=== PATIENT | female | born 1995 | race Caucasian/White ===

== ENCOUNTER 2017-11-23 11:35 | Inpatient (IN) ==
[2017-11-23] MEDS ORDERED: NORMAL SALINE 10 ML SYRINGE FLUSH IVP PRN ×2 (11:54→15:41)
--- NOTE | 2017-11-23 13:31 | DI ---
EXAM: US Uterus, Limited CLINICAL HISTORY: decreased movement TECHNIQUE: Real-time ultrasound of the maternal uterus (limited) with image documentation. COMPARISON: No relevant prior studies available. FINDINGS: Fetus: Single intrauterine gestation. Position: Fetus is in vertex presentation. Heart rate: Heart rate of 142 bpm. Placenta: Placenta is anterior. Grade 1. No abruption. Amniotic fluid: Amniotic fluid index of 5.3 cm. Largest pocket measures 2.8 cm (transverse) x 1.85 cm (depth). Largest vertical pocket fluid depth measures 2.2 cm in the right upper quadrant. Other findings: IMPRESSION: IKER of 5.3 cm with deepest vertical pocket fluid depth of greater than 2 cm remains within normal limits. Otherwise single IUP without acute findings on this limited exam.
[2017-11-23] MEDS ORDERED: Lactated Ringers 1,000 ML PRIMARY IV ONE ×2 (14:01→14:11)
[2017-11-23] MEDS ORDERED: CALCIUM CARBONATE 500 MG (TUMS) CHEWABLE TABLET PO PRN (15:41)
[2017-11-23] MEDS ORDERED: Ondansetron ODT Tab 4 MG TAB PO PRN (15:41)
[2017-11-23] MEDS ORDERED: ONDANSETRON 4 MG/2 ML VIAL IVP PRN (15:41)
[2017-11-23] MEDS: BETAMET ACET/BETAMET NA PH 6 MG/1 ML - 5 ML IM SCH (16:36)
[2017-11-23] MEDS: Lactated Ringers 1,000 ML PRIMARY IV SCH (16:37)
--- NOTE | 2017-11-23 20:09 | OB.PROGRES ---
Intake - - Reason for Visit/Chief Complaint: NST, Leakage of Fluid Admitted From: Physician Office - Estimated Due Date: 12/16/17 Gestational Age in Weeks and Days: 37 Weeks and 0 Days : 1 Living Children: 0 - Labs Blood Type and Rh: B+ Group B Strep: Unknown Hepatitis B Surface Antigen: Absent HIV: Negative Rubella Status: Immune Maternal - Vital Signs Last Taken Vital Signs: Vital Signs - Last Taken Temperature 97.7 F 11/23/17 16:49 Pulse Rate 68 11/23/17 18:25 Respiratory Rate 16 11/23/17 16:50 Blood Pressure 126/79 11/23/17 16:50 Pulse Ox 99 11/23/17 16:50 - Vaginal Discharge Vaginal Bleeding Amount: None Vaginal Discharge Amount: Small Vaginal Discharge Description: Thin Vaginal Discharge Odor: Odorless Vaginal Itching: No Monitoring - Uterine Activity Uterine Contraction Monitor Mode: External Contraction Frequency(minutes): none noted Results - Labs CBC and BMP: 11/25/17 08:31 Assessment and Plan - Patient Problems (1) Oligohydramnios Current Visit: Yes Status: Acute Code(s): O41.00X0 - Oligohydramnios, unspecified trimester, not applicable or unspecified Support Text: 22 yo at 36 5/7 weeks gestation (by 9 week u/s) who presented to clinic today for routine OB visit. She complained of decreased FM x1.5 weeks as well as increased vaginal dischare/possible LOF. history - established care in [place]. GC/CT positive at diagnosis. She did have a negative SHERLYN later in . uncomplicated until now. labs 07/09/17 - BT: B+, Ab-; HBsAg neg; RI; RPR NR; Varicella Immune; HIV neg; H/H/Plt 14.4/44/294; urine cx neg; TSH 0.618. Declined quad screen. 20 week anatomy scan normal, anterior placenta. We did a growth scan - 13%ile, anterior placenta, grade 0. PMH - Asthma - rare albuterol use PSH - none FH - mo - htn, severe preeclampsia; GM - alzheimer; Bro - astrocytoma SH - never smoker, denies etoh and illicit drug use O: In clinic u/s notable for subjectively low fluid, vertex. She was sent to L& D for evaluation. Reactive NST. No contractions. Negative Amnisure. U/s revealed IKER 5.3 with single deepest verticle pocket 2.2 cm. A/P: Borderline oligohydramnios - Single deepest pocket 2.2 cm. Given gestational age and likely delivery shortly for oligo, I offered corticosteroid therapy for reduction of respiratory morbidity and mortality. She was given her first injection at 1700. Will admit overnight for IVF. Plan to recheck growth u/s, IKER in the morning. GBS was collected in clinic and is pending. Close observation through the night.
[2017-11-24] MEDS: Lactated Ringers 1,000 ML PRIMARY IV SCH ×3 (00:06→20:46)
--- NOTE | 2017-11-24 10:12 | DI ---
LIMITED OBSTETRICAL ULTRASOUND, 11/24/2017 10:00 AM Clinical History: Oligohydramnios. Decreased movement. Previous Exam: 11/23/2017. EDC based on early OB US: 12/16/2017. There is a single live IUP currently in vertex presentation. Amnionic fluid content is decreased for this stage of . Amniotic fluid index is 4.6 cm. activity is observed as follows: cardi ac and extremity. The placenta is anterior corpus and Grade 1. heart rate varies between 120-13 5 beats/minute over a time frame of 3 minutes. Cord Doppler ultrasound is performed and there is khan tolic flow. Systolic/diastolic ratios are 2.4, 3.2, and 3.2. BPD, HC, AC, and FL measurements are 87 mm, 306 mm, 300 mm, and 62 mm, respectively. These measurements correspond to EGA values of 35 weeks 1 day, 34 weeks 1 day, 34 weeks 0 days, and 32 weeks 1 day, respectively. Composite EGA is 33 weeks 6 days. The US EDC is 01/06/2018. EDC based on early OB US is 12/16/2017. HC and FL measurements are les s than the 2nd percentile and the AC measurement is in the 3rd percentile. LMP percentile is 2%. Michell mated weight is 2226 g, plus or minus 325 g. Readin. Single live fetus with vertex presentation. There is oligohydramnios. Amnionic fluid index is 4.6 cm. Placenta is anterior corpus and grade 1. 2. The composite EGA is 33 weeks 6 days with an ultrasound EDC of 01/06/2018. The EDC based on the [facility] OB ultrasound is 12/16/2017. 3. LMP percentile is 2%. Estimated weight is 2226 g, plus or minus 325 g.
[2017-11-24] MEDS: BETAMET ACET/BETAMET NA PH 6 MG/1 ML - 5 ML IM SCH (16:18)
[2017-11-24] MEDS: Prenatal Multivitamin Tab 1 TAB TAB PO SCH (20:45)
--- NOTE | 2017-11-24 20:48 | OB.PROGRES ---
Interval History: 22 yo female admitted last night for fluid resuscitation. I first rounded on her this morning. She was feeling well, no contractions. Noted only increased urination with IVF. She was anxious for the u/s results. This afternoon she noted increased vaginal discharge. Reports irregular contractions. Objective - Cervical Exam Cervical Exam: closed/thick/high, posterior, firm [place]: no contractions Heart Rate: baseline 150, mod darrion, +accels, -decels Heart Rate Interpretation Category: Category I - Labs Additional Lab Results: Amnisure negative 11/23 and 11/24 - Vital Signs Last Taken Vital Signs: Vital Signs - Last Taken Temperature 97.7 F 11/23/17 16:49 Pulse Rate 68 11/23/17 18:25 Respiratory Rate 16 11/23/17 16:50 Blood Pressure 126/79 11/23/17 16:50 Pulse Ox 99 11/23/17 16:50 Assessment and Plan - Patient Problems (1) Oligohydramnios Current Visit: Yes Status: Acute Code(s): O41.00X0 - Oligohydramnios, unspecified trimester, not applicable or unspecified (2) IUGR (intrauterine growth restriction) Current Visit: Yes Status: Acute Support Text: 22 yo at 36 6/7 weeks gestation admitted for IVF resuscitation in setting of oligohydramnios. Repeat u/s today with decrease in IKER from 5.3 cm with single deepest pocket 2.2cm down to 4.6cm with a single deepest pocket of 1.9cm. EFW 2%ile. Cervix - cl/thick/high, posterior, firm. Patient received her second dose of celestone at around 1600. At this point patient has a Category I strip, although earlier in the day she did have some variable decelerations. Long discussion with patient regarding moving forward with delivery. We discussed the fact that the patient has an unfavorable cervix, but given IUGR and oligo we will start with low dose pitocin. Since there were variables today , we discussed doing a contraction stress test prior to starting her induction. The patient asked about electing to do a primary section. We discussed risks and benefits of both vaginal vs delivery. We did discuss specifically that we do not do VBACs at our hospital and she would be require repeat cesareans. We also discussed the fact that her may need transferred to [place] for a higher level of care, and that she would likely have a longer hospital stay if she had a . At this point since she has a category I tracing, amnisure was again negative, will observe overnight continuously. She will be 37 weeks tomorrow, will have a longer steroid window, and we will proceed with delivery at that time. Patient is still considering primary elective vs proceeding with IOL.
[2017-11-24] MEDS ORDERED: diphenhydrAMINE 25 MG CAPSULE PO PRN (20:49)
[2017-11-25 08:33] LABS: Hematocrit [HCT] 36.4 % (37.0-47.0); Hemoglobin [HGB] 12.4 g/dL (12.0-16.0); MEAN CORPUSCULAR HEMOGLOBIN 30.2 PG (27-31); MEAN CORPUSCULAR HGB CONC 34.1 g/dL (33-37); MEAN CORPUSCULAR VOLUME 88.6 FL (81-99); MEAN PLATELET VOLUME 10.7 FL (7.4-12.2); RED BLOOD COUNT 4.11 10^6/uL (4.20-5.40)
--- NOTE | 2017-11-25 09:32 | OB.PROGRES ---
Interval History: Patient did get some rest overnight. She has talked things through with her mom and has decided to proceed with an elective primary LTCS. Objective - Cervical Exam [place]: some irritability Heart Rate: baseline 140, mod variability, no accels, no decels currently. Overnight baby had more accels. Did seem to be sensitive to position changes, especially to R side. - Labs CBC and BMP: 11/25/17 08:31 - Vital Signs Last Taken Vital Signs: Vital Signs - Last Taken Temperature 98.1 F 11/24/17 21:53 Pulse Rate 91 11/24/17 21:53 Respiratory Rate 20 11/24/17 21:53 Blood Pressure 125/79 11/24/17 21:53 Pulse Ox 99 11/24/17 21:53 Assessment and Plan - Patient Problems (1) Oligohydramnios Current Visit: Yes Status: Acute Code(s): O41.00X0 - Oligohydramnios, unspecified trimester, not applicable or unspecified (2) IUGR (intrauterine growth restriction) Current Visit: Yes Status: Acute Support Text: 22 yo at 37 0/7 weeks gestation (by 9 week u/s) with IUGR (2%ile) and oligohydramnios (4.6 cm) without evidence of ROM. Will proceed with delivery today. Patient has elected to proceed with elective primary LTCS. Patient is stable currently, the OR has requested we wait until 1230 as long as she is ok. Will continue to observe closely. - course notable for GC/CT positive at diagnosis of , negative test of cure. Asthma, but has not required albuterol. -GBS positive, no ROM but will ppx if SROM -Continue close observation, proceed to earlier if any concerns.
[2017-11-25] MEDS: Lactated Ringers 1,000 ML PRIMARY IV SCH ×2 (09:42→17:48)
[2017-11-25] MEDS ORDERED: LIDOCAINE W/ SODIUM BICARB 0.5 ML SYR SUBD PRN (11:05)
[2017-11-25] MEDS ORDERED: Lactated Ringers 1,000 ML PRIMARY IV ONE ×3 (11:05→14:10)
[2017-11-25] MEDS ORDERED: Oxytocin 20 Units + LR 20 UNIT/1,000 ML BAG IV SCH ×2 (11:05→15:04)
[2017-11-25] MEDS ORDERED: LIDOCAINE HCL 2 % 10 ML JELLY URO-JECT TOPICAL PRN (11:05)
[2017-11-25] MEDS ORDERED: Lactated Ringers 1,000 ML PRIMARY IV SCH ×2 (11:05→13:30)
[2017-11-25] MEDS ORDERED: NORMAL SALINE 10 ML SYRINGE FLUSH IVP PRN ×2 (11:05→13:20)
[2017-11-25] MEDS ORDERED: Famotidine Inj 20 MG in Normal Saline Flush 10 ML IVP ONE (11:05)
[2017-11-25] MEDS ORDERED: Metoclopramide Inj 10 MG/2 ML VIAL IV ONE (11:05)
[2017-11-25] MEDS ORDERED: CITRIC ACID/SODIUM CITRATE 30 ML CUP PO ONE (11:05)
[2017-11-25] MEDS ORDERED: CefOXitin Inj 2 GM in Sodium Chloride 0.9% 100 ML IV ONE (11:05)
[2017-11-25] MEDS ORDERED: ePHEDrine Inj 50 MG/ML AMP ONE (12:27)
[2017-11-25] MEDS ORDERED: fentaNYL Inj 100 MCG/2 ML VIAL ONE (12:27)
[2017-11-25] MEDS ORDERED: PHENYLEPHRINE 10,000 MCG/1 ML VIAL ONE (12:29)
[2017-11-25] MEDS ORDERED: ONDANSETRON 4 MG/2 ML VIAL ONE (13:03)
[2017-11-25] MEDS ORDERED: ATROPINE SULFATE 0.4 MG/1 ML VIAL IVP PRN (13:20)
[2017-11-25] MEDS ORDERED: ONDANSETRON 4 MG/2 ML VIAL IVP PRN ×2 (13:20→15:04)
[2017-11-25] MEDS ORDERED: Ondansetron ODT Tab 8 MG TAB PO PRN (13:20)
[2017-11-25] MEDS ORDERED: fentaNYL Inj 100 MCG/2 ML VIAL IVP PRN (13:20)
[2017-11-25] MEDS ORDERED: HYDROmorphone 2 MG/1 ML IVP PRN (13:20)
--- NOTE | 2017-11-25 13:24 | CRNA.PROGR ---
Anesthesia Time - - Start date: 11/25/17 End date: 11/25/17 - Procedure/Recovery Time Anesthesia : Time In: 12:38 Anesthesia : Time Out: 14:27 Anesthesia : Total Time: 109 - Total Anesthesia Time Total Anesthesia Time (minutes): 109 - Other Weight: 71.214 kg Height: 5 ft 2 in Body Mass Index (BMI): 28.7 Physical Status: P2 Anesthesia Type: Spinal Block Obstetrics: C/S anesthesia only
--- NOTE | 2017-11-25 13:25 | CRNA.PROGR ---
Anesthesia Recovery Phase I - Post Anesthesia Evaluation Patient's Condition on Arrival in Phase I: Stable Patient's Condition on Arrival in Phase II: Stable Pain Level: 2
[2017-11-25] MEDS ORDERED: Oxytocin 20 Units + LR 20 UNIT/1,000 ML BAG IV ONE (14:12)
[2017-11-25] MEDS: HYDROmorphone 2 MG/1 ML IV PRN ×2 (14:33→14:44)
[2017-11-25] MEDS ORDERED: CALCIUM CARBONATE 500 MG (TUMS) CHEWABLE TABLET PO PRN (15:04)
[2017-11-25] MEDS ORDERED: LANOLIN HPA 40 GM TUBE TOPICAL PRN (15:04)
[2017-11-25] MEDS ORDERED: diphenhydrAMINE 50 MG/1 ML VIAL IV PRN (15:04)
[2017-11-25] MEDS ORDERED: diphenhydrAMINE 25 MG CAPSULE PO PRN (15:04)
[2017-11-25] MEDS ORDERED: Nalbuphine Inj 20 MG/ML Ampule IVP PRN (15:04)
[2017-11-25] MEDS ORDERED: Naloxone Inj 0.01 MG, Sodium Chloride 0.9% vial 1 ML IVP PRN ×2 (15:04)
[2017-11-25] MEDS ORDERED: Famotidine Inj 20 MG in Normal Saline Flush 10 ML IVP PRN (15:04)
--- NOTE | 2017-11-25 15:27 | OB.OP.NOTE ---
Operative Report - - Surgeon: Lawrence Bolaños 911 Dispatcher: Franck Jacinto MD Anesthesia Type: Regional Anesthesia Provider: Mojgan Barnard CRNA Surgery Date: 11/25/17 Preoperative Diagnosis: 37 week gestation, IUGR, Oligohydramnios Postoperative Diagnosis: Same as above, normal tubes and ovaries, 4lb 2oz female , Apgars 8,9 Procedure: Primary LTCS Complications: none apparent Estimated Blood Loss (mL): 600 Fluids: 2L LR 2L Pitocin Indications: 22 yo at 37 0/7 weeks gestation with IUGR (<2%ile, normal cord dopplers ) and oligohydramnios (IKER 4.6, single deepest pocket 1.8cm). Patient elected to proceed with primary LTCS. Description of Procedure: The patient was consented both verbally and in written form. We specifically discussed that we do not offer VBACs and subsequent deliveries would require a repeat LTCS. The patient was taken to the operating room where spinal anesthesia was found to be adequate. She was then prepared and draped in the normal sterile fashion in the dorsal supine position with a leftward tilt after placing a herndon catheter. A Pfannenstiel skin incision was then made with the scalpel and carried through to the underlying layer of fascia with Bovie. The fascia was incised in the midline and the incision extended laterally with the Bovie. The superior aspect of the fascial incision was then grasped with Isac clamps, elevated and the underlying rectus muscles dissected off bluntly. Attention was then turned to the inferior aspect of this incision which in a similar fashion was grasped with Isac clamps and the rectus muscles dissected off both bluntly and with the Bovie. The rectus muscle was then in the midline, and the peritoneum identified, tented up, and entered in blunt fashion. The peritoneal incision was then extended superiorly and inferiorly with good visualization of the bladder. The Savage retractor was then inserted and the vesicouterine peritoneum was identified. The lower uterine segment incised in the transverse fashion with the scalpel. The uterine incision was then extended laterally in blunt fashion. The infant's head was delivered in OP presentation. The nose and mouth were suctioned with the bulb suction. Delayed cord clamping was accomplished, the cord was then clamped and cut. The was handed off to the awaiting nurse. Cord gases were sent for analysis. The cord was very short and cord blood was not collected. The placenta was then removed manually; the uterus exteriorized, and cleared of all clots and debris. The uterine incision was repaired with 0 Vicryl in a running, locked fashion. A second layer of the same suture was used. She continued to ooze at multiple sites along the serosa despite bovie cauterization. A 3-0 vicryl was used to then close the serosa. The peritoneal cavity was then copiously irrigated with warm saline. The uterus was returned to the abdomen. The paracolic gutters were copiously irrigated with warm saline and a second look at the uterus incision continued to reveal excellent hemostasis. The peritoneum was closed with 2-0 Vicryl. The fascia was reapproximated with 0 vicryl in a running fashion. The subcutaneous space was irrigated copiously with warm saline and then closed first with 3-0 Vicryl and then more superficially with stratafix sutures. The skin was reapproximated with Steri-Strips and a Silverlon dressing applied. Fundal massage was completed with a small clot in the vaginal vault. The patient tolerated the procedure well. Sponge, lap, and needle counts were correct x2. Mefoxin was given preoperatively less than one hour prior to incision time. The patient was taken to the recovery room in stable condition. Infant weighed 4 lbs 2 oz. Apgars 8, 9. Patient Problems - Patient Problem List (1) Oligohydramnios Current Visit: Yes Status: Acute Code(s): O41.00X0 - Oligohydramnios, unspecified trimester, not applicable or unspecified Category: Medical
[2017-11-25] MEDS: KETOROLAC 15 MG/1 ML VIAL IVP SCH ×2 (15:30→23:55)
[2017-11-25] MEDS: oxyCODONE-ACETAMINOPHEN 5-325 TAB PO PRN ×3 (15:31→23:54)
--- NOTE | 2017-11-25 16:05 | CRNA.PROGR ---
Post Anesthesia Phase II - Post Anesthesia Phase II Patient Stable and Discharged To: Phase II Care Assumed By Surgeon: Lawrence Bolaños MD Temperature: 97.7 F Pulse Rate: 76 Respiratory Rate: 14 Blood Pressure: 101/62 Pulse Ox: 98 Total Wendy Score at Discharge: 9 Post Anesthesia Discharge Criteria Met: Yes
[2017-11-25] MEDS: Prenatal Multivitamin Tab 1 TAB TAB PO SCH (17:48)
[2017-11-26] MEDS: oxyCODONE-ACETAMINOPHEN 5-325 TAB PO PRN ×3 (03:58→20:23)
[2017-11-26 05:38] LABS: Hematocrit [HCT] 35.2 % (37.0-47.0); Hemoglobin [HGB] 11.5 g/dL (12.0-16.0); MEAN CORPUSCULAR HEMOGLOBIN 29.4 PG (27-31); MEAN CORPUSCULAR HGB CONC 32.7 g/dL (33-37); MEAN PLATELET VOLUME 11.8 FL (7.4-12.2); RED BLOOD COUNT 3.91 10^6/uL (4.20-5.40)
[2017-11-26] MEDS: NORMAL SALINE 10 ML SYRINGE FLUSH IVP PRN ×2 (06:33→13:06)
[2017-11-26] MEDS: KETOROLAC 15 MG/1 ML VIAL IVP SCH ×3 (06:33→18:48)
--- NOTE | 2017-11-26 07:45 | OB.PROGRES ---
Subjective Post Op Day: 1 Pain Management: PO Jensen Catheter: No Flatus: No Diet: Regular [place] Feeding Method: / Bottle Ambulating: Yes Concerns / Additional Information: Patient was up to the nursery to be with the baby several times. Objective - General General Appearance: POSITIVE: No Acute Distress - Cardiovacular Cardiovascular Exam: POSITIVE: RRR Edema: No Pedal Edema Extremities: Negative Gina's - Bilaterally - Respiratory Respiratory Exam: POSITIVE: Clear to Auscultation - Bilaterally, Breathing Non Labored - Abdomen Bowel Sounds: Present Abdominal Wound Assessment: Silverlone Dressing - Fundus/Lochia/Perineum Uterus Consistency: Firm Uterus Position: POSITIVE: Below Umbilicus Lochia Amount: Moderate 25-50 ml Lochia Color: Rubra/Red Assesstment / Plan (1) Oligohydramnios Current Visit: Yes Status: Acute Support Text: 22 yo G1 now P1, POD 1 s/p primary LTCS in setting of IUGR, oligohydramnios -Pain well controlled -Tolerating a regular diet -Jensen is out, will shower later this morning and change dressing -Pumping now while baby is in critical care nursery with hypoglycemia -Planning to IUD for contraception -Anticipate d/c in 48 hours
--- NOTE | 2017-11-26 08:02 | CRNA.PROGR ---
Anesthesia Note - Progress Notes Anesthesia Progress Note: She is standing near the warmer that her infant daughter is lying in. She denies headache. She denies backache. Has been ambulating. She states that her pain is controlled. Laboratory Results 11/25/17 11/25/17 11/26/17 Range/Units 08:31 08:31 03:56 WBC 14.75 H 14.65 H (4.8-10.8) 10^3/uL RBC 4.11 L 3.91 L (4.20-5.40) 10^6/uL Hgb 12.4 11.5 L (12.0-16.0) g/dL Hct 36.4 L 35.2 L (37.0-47.0) % MCV 88.6 90.0 (81-99) FL MCH 30.2 29.4 (27-31) PG MCHC 34.1 32.7 L (33-37) g/dL RDW Std Deviation 46.1 46.1 (39-50) fL RDW Coeff of Nadia 14.6 H 14.6 H (11.5-14.5) % Plt Count 236 250 (140-350) 10*3/uL MPV 10.7 11.8 (7.4-12.2) FL Blood Type B POSITIVE Antibody Screen Negative Vital Signs - Last Taken Temperature 98.3 F 11/26/17 04:46 Pulse Rate 87 11/26/17 04:46 Respiratory Rate 18 11/26/17 04:46 Blood Pressure 112/72 11/26/17 04:46 Pulse Ox 95 11/26/17 04:46 Intake and Output (24hr x 4 totals) 11/24/17 11/25/17 11/26/17 11/27/17 05:59 05:59 05:59 05:59 Intake Total 5624 / 5624 Output Total 2175 / 2175 700 / 700 Balance 3449 / 3449 -700 / -700 No apparent anesthetic difficulties
[2017-11-26] MEDS: Prenatal Multivitamin Tab 1 TAB TAB PO SCH (09:46)
[2017-11-26] MEDS: Senna/Docusate Tab 1 TAB TAB PO SCH ×2 (09:46→21:07)
[2017-11-26] MEDS: D5-LR 1,000 ML PRIMARY IV SCH (13:47)
[2017-11-27] MEDS: oxyCODONE-ACETAMINOPHEN 5-325 TAB PO PRN ×3 (07:20→20:00)
[2017-11-27] MEDS: IBUPROFEN 800 MG TABLET PO PRN ×2 (07:20→23:55)
[2017-11-27] MEDS: Prenatal Multivitamin Tab 1 TAB TAB PO SCH (11:33)
[2017-11-27] MEDS: Senna/Docusate Tab 1 TAB TAB PO SCH ×2 (11:33→20:00)
[2017-11-28 00:57] VITALS: O2SAT 98
[2017-11-28] MEDS: IBUPROFEN 800 MG TABLET PO PRN (05:07)
[2017-11-28] MEDS: oxyCODONE-ACETAMINOPHEN 5-325 TAB PO PRN (05:07)
[2017-11-28] MEDS: Prenatal Multivitamin Tab 1 TAB TAB PO SCH (09:42)
[2017-11-28] MEDS: Senna/Docusate Tab 1 TAB TAB PO SCH (09:43)
[2017-11-28 09:46] VITALS: RESP 18; TEMP 98.1
[2017-11-28 09:47] VITALS: BP 125/88
[2017-11-28 11:04] LABS: BILIRUBIN,URINE NEGATIVE (NEG); CLARITY,URINE CLEAR (CLEAR); COLOR,URINE YELLOW (Y); GLUCOSE, URINE (UA) NEGATIVE (NEG); OCCULT BLOOD,URINE MODERATE (NEG); PROTEIN,URINE NEGATIVE (NEG); UROBILINOGEN,URINE 0.2 EU/dL (0.2)
[2017-11-28 11:09] LABS: Hematocrit [HCT] 36.3 % (37.0-47.0); Hemoglobin [HGB] 11.8 g/dL (12.0-16.0); MEAN CORPUSCULAR HEMOGLOBIN 29.4 PG (27-31); MEAN CORPUSCULAR HGB CONC 32.5 g/dL (33-37); MEAN CORPUSCULAR VOLUME 90.3 FL (81-99); MEAN PLATELET VOLUME 10.6 FL (7.4-12.2); RED BLOOD COUNT 4.02 10^6/uL (4.20-5.40)
[2017-11-28 11:10] LABS: RBC,URINE 20-30 /hpf; SQUAMOUS EPITHELIAL CELL,UR RARE; URINE SAMPLE TYPE CLEAN CATCH URINE
[2017-11-28 11:12] LABS: BLOOD UREA NITROGEN 12 mg/dL (7-22); SERUM ALBUMIN 3.4 g/dL (3.5-4.8); Uric Acid 3.3 mg/dl (2.5-6.2)
--- NOTE | 2017-11-29 15:12 | DCSUMMARY ---
Hospitalization Summary Admit Date: 11/23/17 Discharge Date: 11/28/17 Primary Diagnosis:: s/p primary LTCS Secondary Diagnosis:: Oligohydramnios, IUGR Primary Surgery and Date: 11/25/17 primary LTCS Delivery Type: Hospital Course: 22 yo admitted at 36 5/7 weeks gestation with Oligo, IUGR. She was given steroids and attempted fluid resuscitation given oligohydramnios , which was unsuccessful. She ultimately elected to proceed with a primary LTCS in this setting. I ultimately think this was probably the right decision as the infant was very sensitive to position changes. She was delivered at 37 0/7 weeks gestation. Infant weight 4 lbs 2 oz, apgars 8,9. / Postop Complications: None apparent Complications: Hypoglycemia, SGA Exam - Vitals Vital Signs: Vital Signs Temperature 98.1 F Temperature Source Oral Pulse Rate [Pulse Oximeter] 68 Pulse Rate [Apical] 63 Pulse Rate 85 Respiratory Rate 18 Blood Pressure [Left Arm] 137/97 Blood Pressure [Right Arm] 125/88 Blood Pressure 101/62 Pulse Ox 98 Oxygen Flow Rate ra Oxygen Delivery Method Room Air Height 5 ft 2 in Weight 157 lb - General General Appearance: No Acute Distress, Cooperative - Head Head Exam: Normal Inspection - Neck Neck Exam: Normal Inspection - Respiratory Respiratory Exam: POSITIVE: Clear to Auscultation - Bilaterally, Breathing Non Labored - Cardiovascular Cardiovascular Exam: POSITIVE: RRR - GI/Abdominal GI/Abdominal Exam: POSITIVE: Normal Bowel Sounds, Soft Additional GI/Abdominal Exam Details: Normal bowel sounds, U firm below umbilicus - Extremities Extremities Exam: POSITIVE: No Edema Present, Negative Gina's sign - Neurological Neurological Exam: POSITIVE: Alert, Oriented x 3 - Psychiatric Psychiatric Exam: POSITIVE: Normal Affect, Normal Mood - Integumentary Integumentary Exam: POSITIVE: Normal Color Patient Problems - Patient Problem List (1) Oligohydramnios Status: Acute Code(s): O41.00X0 - Oligohydramnios, unspecified trimester, not applicable or unspecified Category: Medical (2) delivery delivered Status: Acute Code(s): O82 - Encounter for delivery without indication Support Text: POD 3 s/p primary LTCS -Pumping and breast feeding -Pain well controlled -Plan to do Mirena for pp contraception -D/c to home today, f/u with me 7 days postop for wound check -Rxs for senokot, percocet 5/325 #30 and motrin 800mg Category: Medical
--- NOTE | 2017-11-29 15:22 | OB.PROGRES ---
Subjective Post Op Day: 2 Pain Management: PO Jensen Catheter: No Flatus: Yes Diet: Regular Feeding Method: Exculsively (and pumping) Ambulating: Yes Concerns / Additional Information: No BM yet, otherwise doing well Objective - General General Appearance: POSITIVE: No Acute Distress, Cooperative - Cardiovacular Cardiovascular Exam: POSITIVE: RRR Edema: No Pedal Edema Extremities: Negative Gina's - Bilaterally - Respiratory Respiratory Exam: POSITIVE: Clear to Auscultation - Bilaterally, Breathing Non Labored - Abdomen Bowel Sounds: Present Abdominal Wound Assessment: Silverlone Dressing, Well Approximated, Steri Strips Applied - Fundus/Lochia/Perineum Uterus Consistency: Firm Uterus Position: POSITIVE: Below Umbilicus Assesstment / Plan (1) Oligohydramnios Status: Acute (2) delivery delivered Status: Acute
== END 2017-11-28 11:50 | disposition home or self-care (01) | DRG 765 ==
LOC: OBIP 11:35 → OBOP 11:35 → OBIP 16:03 → OBOR 11-25 11:06 → OBIP 11-25 16:00 → OBOR 11-25 16:40 → OBIP 11-25 16:42
PROVIDERS: ADMIT Student in an Organized Health Care Education/Training Program; ATTEND Student in an Organized Health Care Education/Training Program